=== PATIENT | male | born 1965 | race Hispanic/Latino ===

== ENCOUNTER 2020-10-27 02:44 | Inpatient (IN) | payer SELFPAY ==
--- NOTE | 2020-10-27 04:54 | XRay Report ---
CHEST 2 VIEWS INDICATION / CLINICAL INFORMATION: JACEY. Dyspnea FINDINGS: SUPPORT DEVICES: None. HEART / MEDIASTINUM: No significant abnormality. LUNGS / PLEURA: Ill-defined bibasilar opacities present within both lower lungs. No large pleural eff usion or pneumothorax. Signer Name: Jordy Mullins MD Signed: 10/27/2020 4:50 AM Workstation Name: [id number]
[2020-10-27 05:00] LABS: Basophils % (Auto) 0.5 % (0.0-1.8); Eosinophils % (Auto) 0.1 % (0.0-4.3); Hematocrit 50.5 % (35.5-45.6); Hemoglobin 17.4 gm/dl (11.8-15.2); Lymphocytes # (Auto) 1.7 K/mm3 (1.2-5.4); Lymphocytes % (Auto) 38.1 % (13.4-35.0); Mean Corpuscular HGB Conc 35 % (32-34); Mean Corpuscular Volume 91 fl (84-94); Monocytes # (Auto) 0.6 K/mm3 (0.0-0.8); Monocytes % (Auto) 12.4 % (0.0-7.3); Platelet Count 138 K/mm3 (140-440); Red Blood Count 5.55 M/mm3 (3.65-5.03); Red Cell Distribution Width 13.4 % (13.2-15.2)
[2020-10-27 05:24] LABS: Alanine Aminotransferase 32 units/L (7-56); Albumin 3.9 g/dL (3.9-5); BUN/Creatinine Ratio 17; Blood Urea Nitrogen 19 mg/dL (9-20); Hemolysis Index 6
[2020-10-27] MEDS ORDERED: AZITHROMYCIN/NS 500 MG/250 ML 500 MG/250 ML BAG IV ONE (05:31)
[2020-10-27] MEDS ORDERED: cefTRIAXone/NS 2 GM/100 ML 2 GM/100 ML BAG IV ONE (05:31)
[2020-10-27] MEDS ORDERED: dexAMETHasone 4 MG/ML VIAL IV ONE (05:31)
--- NOTE | 2020-10-27 05:38 | Emergency Department Report ---
ED Shortness of Breath HPI - General Chief Complaint: Dyspnea/Respdistress Stated Complaint: JACEY Time Seen by Provider: 10/27/20 05:15 Source: EMS Mode of arrival: Stretcher Limitations: No Limitations - History of Present Illness Initial Comments: Patient is a 57-year-old male who presents emergency room with complaints of shortness of breath, cough, headache. Patient states symptoms started 4 days ago. But states symptoms are worsening. Patient brought in by EMS. Patient found to have a oxygen saturation of 82% on room air. Patient is currently on 4 L of oxygen. Patient has not been vaccinated against COVID-19. Patient does not recall coming in contact with somebody with symptoms of COVID-19. Patient denies sick contacts. Patient denies international travel. Patient states shortness of breath better with rest and worse with exertion. Patient states his cough is dry. Patient states headache is a 6 out of 10. Patient states the headache is better with rest. Patient states that headache is worse with exertion. Patient denies blurry vision. MD Complaint: shortness of breath, cough -: Sudden Severity: severe Improves With: rest Worsens With: exertion Context: recent URI Associated Symptoms: cough - Related Data Allergies Allergy/AdvReac Type Severity Reaction Status Date / Time Penicillins Allergy Hives Verified 10/27/20 03:03 ED Review of Systems ROS: Stated complaint: JACEY Other details as noted in HPI Constitutional: denies: chills, fever Eyes: denies: eye pain, eye discharge, vision change ENT: denies: ear pain, throat pain Respiratory: see HPI, cough, shortness of breath. denies: wheezing Cardiovascular: denies: chest pain, palpitations Endocrine: no symptoms reported Gastrointestinal: denies: abdominal pain, nausea, diarrhea Genitourinary: denies: urgency, dysuria Musculoskeletal: denies: back pain, joint swelling, arthralgia Skin: denies: rash, lesions Neurological: as per HPI, headache. denies: weakness, paresthesias Psychiatric: denies: anxiety, depression Hematological/Lymphatic: denies: easy bleeding, easy bruising ED Past Medical Hx - Past Medical History Previous Medical History?: Yes - Surgical History Past Surgical History?: No - Family History Family history: no significant - Social History Smoking Status: Current Every Day Smoker Substance Use Type: None ED Physical Exam - General Limitations: No Limitations General appearance: alert, in no apparent distress - Head Head exam: Present: atraumatic, normocephalic - Eye Eye exam: Present: normal appearance - ENT ENT exam: Present: mucous membranes moist - Neck Neck exam: Present: normal inspection - Respiratory Respiratory exam: Present: decreased breath sounds. Absent: respiratory distress - Cardiovascular Cardiovascular Exam: Present: regular rate, normal rhythm. Absent: systolic murmur, diastolic murmur, rubs, gallop - GI/Abdominal GI/Abdominal exam: Present: soft, normal bowel sounds - Rectal Rectal exam: Present: deferred - Extremities Exam Extremities exam: Present: normal inspection - Back Exam Back exam: Present: normal inspection - Neurological Exam Neurological exam: Present: alert, oriented X3 - Psychiatric Psychiatric exam: Present: normal affect, normal mood - Skin Skin exam: Present: warm, dry, intact, normal color. Absent: rash ED Course Vital Signs 10/27/20 03:02 Temperature 98.2 F Pulse Rate 79 Respiratory 16 Rate Blood Pressure 116/88 [Left] O2 Sat by Pulse 98 Oximetry - Reevaluation(s) Reevaluation #1: I discussed all results with patient. I discussed plan of care with patient. Patient agrees with plan of care and admission. Patient to be admitted to the hospitalist service. 10/27/20 05:36 - Consultations Consultation #1: Hospitalist consulted for admission. Hospitalist to admit patient. 10/27/20 05:36 ED Medical Decision Making - Lab Data Result diagrams: 10/27/20 04:31 10/27/20 04:31 - Radiology Data Radiology results: report reviewed, image reviewed interpreted by me: chest x-ray: Bilateral pneumonia, no pneumothorax, no foreign body, no osseous findings, CHEST 2 VIEWS INDICATION / CLINICAL INFORMATION: JACEY. Dyspnea FINDINGS: SUPPORT DEVICES: None. HEART / MEDIASTINUM: No significant abnormality. LUNGS / PLEURA: Ill-defined bibasilar opacities present within both lower lungs. No large pleural effusion or pneumothorax. - Medical Decision Making Patient is a 35-year-old male who presents emergency room with complaints of difficulty breathing, headache and cough. Patient is not vaccinated against COVID-19. Patient had labs done which were essentially unremarkable. Patient had a chest x-ray which shows bilateral infiltrates. I personally reviewed the chest x-ray. Patient was given Decadron, Rocephin and Zithromax. Patient was brought in by EMS and the patient was found to be severely hypoxic. Patient was placed on oxygen. Pulse ox improved. Patient remained on oxygen while in ER. Patient admitted to the hospital service for further evaluation treatment. Critical care time documented due to the multiple reassessments, prolonged time at the bedside, interpretation of diagnostics and labs. - Differential Diagnosis PUI, Covid, hypoxia, shortness of breath, cough, pneumonia Critical Care Time: Yes Critical care time in (mins) excluding proc time.: 35 Critical care attestation.: If time is entered above; I have spent that time in minutes in the direct care of this critically ill patient, excluding procedure time. Critical Care Time: 35 minutes ED Disposition Clinical Impression: Shortness of breath, Person under investigation for COVID-19 Respiratory failure Qualifiers: Chronicity: acute Respiratory failure complication: hypoxia Qualified Code(s): J96.01 - Acute respiratory failure with hypoxia Pneumonia Qualifiers: Pneumonia type: due to unspecified organism Laterality: bilateral Lung location: unspecified part of lung Qualified Code(s): J18.9 - Pneumonia, unspecified organism Disposition: ADMITTED INPATIENT Is pt being admited?: Yes Does the pt Need Aspirin: No Condition: Critical Instructions: Bacterial Pneumonia (ED) Time of Disposition: 05:58
[2020-10-27] MEDS ORDERED: ONDANSETRON 4 MG/2 ML INJ IV PRN (05:59)
[2020-10-27] MEDS ORDERED: oxyCODONE /ACETAMINOPHEN 5-325MG TAB PO PRN (05:59)
[2020-10-27] MEDS ORDERED: HYDROmorphone 1 MG/1 ML INJ IV PRN (05:59)
[2020-10-27] MEDS ORDERED: ACETAMINOPHEN 325 MG TAB PO PRN (05:59)
[2020-10-27] MEDS ORDERED: HEPARIN 5,000 UNIT/1 ML VIAL SUB-Q SCH (06:00)
[2020-10-27] MEDS ORDERED: hydrALAZINE 20 MG/1 ML INJ IV PRN (06:02)
--- NOTE | 2020-10-27 06:06 | History and Physical Report ---
History of Present Illness Date of examination: 10/27/20 Date of admission: 10/27/2020 Chief complaint: Shortness of breath cough and headache History of present illness: 57-year-old male with history of tobacco abuse was brought to the emergency room because of shortness of breath, cough, headache for the last 4 days. Patient symptom are worsening. Patient found to have a oxygen saturation of 82% on room air. Patient is currently on 4 L of oxygen. Patient has not been vaccinated against COVID-19. Patient does not recall coming in contact with somebody with symptoms of COVID-19. Patient denies sick contacts. Patient denies international travel. Patient states shortness of breath better with rest and worse with exertion. Patient states his cough is dry. Patient states headache is a 6 out of 10. Patient states the headache is better with rest. Patient states that headache is worse with exertion. Patient denies blurry vision. In the emergency room patient chest x-ray shows ill-defined bibasilar opacities present within the both lower lungs. No large pleural effusion or pneumothorax We are going to admit the patient as PUI. Med rec and not available. Advance discharge planning is initiated Past History Past Medical History: other (Tobacco abuse) Medications and Allergies Allergies Allergy/AdvReac Type Severity Reaction Status Date / Time Penicillins Allergy Hives Verified 10/27/20 03:03 Active Meds: Active Medications Azithromycin (Zithromax/Ns) 500 mg in 250 mls @ 250 mls/hr IV ONCE ONE; Protocol Stop: 10/27/20 06:30 Review of Systems All systems: negative Constitutional: other (Headache) Cardiovascular: shortness of breath, dyspnea on exertion Respiratory: cough, shortness of breath, dyspnea on exertion Exam - Constitutional Vitals: Temp Pulse Resp BP Pulse Ox 98.2 F 79 16 116/88 98 10/27/20 03:02 10/27/20 03:02 10/27/20 03:02 10/27/20 03:02 10/27/20 03:02 General appearance: Present: no acute distress, well-nourished - EENT Eyes: Present: PERRL ENT: hearing intact, clear oral mucosa - Neck Neck: Present: supple, normal ROM - Respiratory Respiratory effort: normal Respiratory: bilateral: diminished - Cardiovascular Heart Sounds: Present: S1 & S2. Absent: rub, click - Extremities Extremities: pulses symmetrical, No edema Peripheral Pulses: within normal limits - Abdominal General gastrointestinal: Present: soft, non-tender, non-distended, normal bowel sounds Male genitourinary: Present: normal - Integumentary Integumentary: Present: clear, warm, dry - Musculoskeletal Musculoskeletal: gait normal, strength equal bilaterally - Psychiatric Psychiatric: appropriate mood/affect, intact judgment & insight - Neurologic Neurologic: CNII-XII intact, moves all extremities Results - Labs CBC & Chem 7: 10/27/20 04:31 10/27/20 04:31 Labs: Laboratory Last Values WBC 4.5 K/mm3 (4.5-11.0) 10/27/20 04:31 RBC 5.55 M/mm3 (3.65-5.03) H 10/27/20 04:31 Hgb 17.4 gm/dl (11.8-15.2) H 10/27/20 04:31 Hct 50.5 % (35.5-45.6) H 10/27/20 04:31 MCV 91 fl (84-94) 10/27/20 04:31 MCH 31 pg (28-32) 10/27/20 04:31 MCHC 35 % (32-34) H 10/27/20 04:31 RDW 13.4 % (13.2-15.2) 10/27/20 04:31 Plt Count 138 K/mm3 (140-440) L 10/27/20 04:31 Lymph % (Auto) 38.1 % (13.4-35.0) H 10/27/20 04:31 [place] % (Auto) 12.4 % (0.0-7.3) H 10/27/20 04:31 Eos % (Auto) 0.1 % (0.0-4.3) 10/27/20 04:31 Baso % (Auto) 0.5 % (0.0-1.8) 10/27/20 04:31 Lymph # (Auto) 1.7 K/mm3 (1.2-5.4) 10/27/20 04:31 [place] # (Auto) 0.6 K/mm3 (0.0-0.8) 10/27/20 04:31 Eos # (Auto) 0.0 K/mm3 (0.0-0.4) 10/27/20 04:31 Baso # (Auto) 0.0 K/mm3 (0.0-0.1) 10/27/20 04:31 Seg Neutrophils % 48.9 % (40.0-70.0) 10/27/20 04:31 Seg Neutrophils # 2.2 K/mm3 (1.8-7.7) 10/27/20 04:31 Sodium 133 mmol/L (137-145) L 10/27/20 04:31 Potassium 4.3 mmol/L (3.6-5.0) 10/27/20 04:31 Chloride 96.4 mmol/L (98-107) L 10/27/20 04:31 Carbon Dioxide 26 mmol/L (22-30) 10/27/20 04:31 Anion Gap 15 mmol/L 10/27/20 04:31 BUN 19 mg/dL (9-20) 10/27/20 04:31 Creatinine 1.1 mg/dL (0.8-1.3) 10/27/20 04:31 Estimated GFR > 60 ml/min 10/27/20 04:31 BUN/Creatinine Ratio 17 % 10/27/20 04:31 Glucose 99 mg/dL (75-100) 10/27/20 04:31 Lactic Acid 1.00 mmol/L (0.7-2.0) 10/27/20 04:31 Calcium 9.0 mg/dL (8.4-10.2) 10/27/20 04:31 Total Bilirubin 0.40 mg/dL (0.1-1.2) 10/27/20 04:31 AST 28 units/L (5-40) 10/27/20 04:31 ALT 32 units/L (7-56) 10/27/20 04:31 Alkaline Phosphatase 88 units/L (35-129) 10/27/20 04:31 Total Protein 7.2 g/dL (6.3-8.2) 10/27/20 04:31 Albumin 3.9 g/dL (3.9-5) 10/27/20 04:31 Albumin/Globulin Ratio 1.2 % 10/27/20 04:31 - Imaging and Cardiology Chest x-ray: report reviewed Assessment and Plan VTE prophylaxis?: Chemical Plan of care discussed with patient/family: Yes - Patient Problems (1) Acute respiratory failure with hypoxia Status: Acute Plan to address problem: Admit the patient to the medical floor. Oxygen via nasal cannula 3 L/min albuterol via nebulizer every 4 hours as needed. Dexamethasone 6 mg IV daily. Rocephin 2 g IV daily and Zithromax 500 mg IV daily. We do the blood cultures sputum culture. Follow Covid PCR and Covid inflammatory marker. We consulted infectious disease for evaluation. (2) Person under investigation for COVID-19 Status: Acute Plan to address problem: Oxygen via nasal cannula 3 L/min albuterol via nebulizer every 4 hours as needed. Dexamethasone 6 mg IV daily. Rocephin 2 g IV daily and Zithromax 500 mg IV daily. We do the blood cultures sputum culture. Follow Covid PCR and Covid inflammatory marker. We consulted infectious disease for evaluation. (3) Pneumonia Status: Acute Qualifiers: Pneumonia type: due to unspecified organism Laterality: bilateral Lung location: unspecified part of lung Qualified Code(s): J18.9 - Pneumonia, unspecified organism Plan to address problem: Rocephin 2 g IV daily and Zithromax 500 mg IV daily. We do the blood cultures sputum culture. We consulted infectious disease for evaluation. (4) Tobacco abuse Status: Acute Plan to address problem: We counseled the patient regarding quitting smoking. We will put the patient on nicotine patch 7 mg daily (5) DVT prophylaxis Status: Acute Plan to address problem: Heparin 5000 units subcu every 8 hours for DVT prophylaxis. Pepcid 20 mg p.o. twice daily for GI prophylaxis. Patient is a full code
[2020-10-27 06:58] LABS: C-Reactive Protein 0.5 mg/dL (0.00-1.30)
[2020-10-27 07:04] VITALS: BP 109/78
[2020-10-27] MEDS ORDERED: FAMOTIDINE 20 MG TAB PO SCH (10:00)
--- NOTE | 2020-10-27 12:53 | Event Note ---
Date: 10/27/20 Call to evaluate the patient who currently is on oxygen at 3L. He informs me that he did not want to come to the hospital but his girlfriend called the ambulance. He is aware of the likelihood that he may have Covid but he is refusing testing. He does not confirm that he is ever been tested. Following extensive discussion with the patient he states that "I thought my girlfriend loved me until she called the ambulance" following extensive discussion further he decided to sign a DNR he could not tell me why it 56 he wants this done. But apart from refusing testing he was refusing all the treatments that were being offered to him. He did sign out AGAINST MEDICAL ADVICE
--- NOTE | 2020-10-27 13:39 | Event Note ---
Date: 10/27/20 Noted patient plans to sign out AMA. If he remains inpatient and is COVID-19 positive, please reconsult ID
[2020-10-28] MEDS ORDERED: cefTRIAXone/NS 2 GM/100 ML 2 GM/100 ML BAG IV SCH (06:00)
[2020-10-28] MEDS ORDERED: AZITHROMYCIN/NS 500 MG/250 ML 500 MG/250 ML BAG IV SCH (06:00)
[2020-10-28] MEDS ORDERED: dexAMETHasone 4 MG/ML VIAL IV SCH (10:00)
== END 2020-10-31 02:51 | disposition left against medical advice (07) | DRG 193 ==
LOC: ED 02:44 → 3A 05:59 → OBSVTOIN 10-29 12:25
PROVIDERS: ADMIT Hospitalist; ATTEND Internal Medicine
DX: J18.9 Pneumonia, unspecified organism (principal); J96.01 Acute respiratory failure with hypoxia; Z20.822 Contact with and (suspected) exposure to COVID-19; Z88.0 Allergy status to penicillin; F17.200 Nicotine dependence, unspecified, uncomplicated; Z53.29 Procedure and treatment not carried out because of patient's decision for other reasons
CPT/HCPCS: 36415; 71046; 80053; 82140; 82728; 82947; 83615; 84145; 85025; 85379; 86140; 94760; 96365; 96372; 96375; G0378; J0456; J0696; J1100; J1644